=== PATIENT | male | born 1975 | race Caucasian/White ===

== ENCOUNTER 2018-05-30 06:21 | Day surgery (SDC) | payer BC ==
--- NOTE | 2018-05-28 15:01 | RAD REPORT ---
EXAM DESCRIPTION: RAD - Chest Pa And Lat (2 Views) - 05/28/2018 2:52 pm CLINICAL HISTORY: preop Chest pain. COMPARISON: No comparisons FINDINGS: The lungs are emphysematous but clear. The heart is normal in size. No displaced fractures . IMPRESSION: Mild COPD.
[2018-05-28 15:15] LABS: Absolute Lymphocytes (CBC) 3.4 K/uL (0.7-4.9); Absolute Monocytes 0.5 K/uL (0.1-1.3); Absolute Neutrophil 2.4 K/uL (1.8-8.0); Basophils % 0.7 % (0-1.3); Eosinophils % 6.5 % (0-4.4); Lymphocytes % 49.4 % (15.3-44.8); MPV 10.4 fL (7.6-11.3); Monocytes % 7.4 % (3.3-12.3); RBC Red Blood Cell Count 5.07 M/uL (4.33-5.43)
[2018-05-28 15:31] LABS: Potassium 4.2 mmol/L (3.5-5.1)
[2018-05-28 15:55] LABS: Blood Morphology Comment NOT SEEN (NOT SEEN); Platelet Estimate ADEQ
[2018-05-30] MEDS ORDERED: CEFAZOLIN/SWI 1gm 1 GM/10 ML SYR ONE (06:50)
[2018-05-30] MEDS ORDERED: LIDOCAINE 1% MPF 30 ML VIAL ONE (06:53)
[2018-05-30] MEDS: Ringers Lactate 1,000 ML IV ONE (07:00)
[2018-05-30] MEDS ORDERED: LIDOCAINE 2% MPF 5 ML VIAL ONE (07:19)
[2018-05-30] MEDS ORDERED: PROPOFOL 200 MG/20 ML VIAL IV ONE (07:19)
[2018-05-30] MEDS ORDERED: FENTANYL CITR 100 MCG/2 ML ONE (07:19)
[2018-05-30] MEDS ORDERED: MIDAZOLAM HCL 2 MG/2 ML INJ ONE (07:19)
[2018-05-30] MEDS ORDERED: ROCURONIUM 50 MG/5 ML VIAL IV ONE (07:19)
[2018-05-30] MEDS ORDERED: BUPIVACAINE 0.5% PF 10 ML VIAL ONE (07:26)
[2018-05-30] MEDS: BUPIVACAINE 0.5% PF 10 ML VIAL ONE ×2 (07:48→08:16)
[2018-05-30] MEDS ORDERED: DEXAMETHASONE 10 MG/ML VIAL ONE (08:00)
[2018-05-30] MEDS ORDERED: ONDANSETRON 4 MG/2 ML VIAL ONE (08:07)
[2018-05-30] MEDS ORDERED: GLYCOPYRROLATE 0.2 MG/ML SYR ONE (08:07)
[2018-05-30] MEDS ORDERED: DIPHENHYDRAMINE 50 MG/ML VIAL ONE (08:22)
[2018-05-30] MEDS ORDERED: EPHEDRINE SULF 50 MG/ML VIAL ONE (08:34)
--- NOTE | 2018-05-30 08:35 | P.BOP ---
Preoperative diagnosis: ulcerated tender posterior neck mass, back subQ mass Postoperative diagnosis: POtst neck basal cell carcinoma Primary procedure: 1. Wide excision with frozen section basal cell carcinoma post neck 6x4cm Secondary procedure: 2. Excisional biopsy of back subQ santoyo 4x3cm Estimated blood loss: <10cc Specimen: post neck mass, extra resected margin of neck, back mass Findings: post neck mass microscopically found to be bigger than initial physical ivette Anesthesia: General Complications: None Transferred to: Recovery Room Condition: Good
[2018-05-30] MEDS ORDERED: Ringers Lactate 1,000 ML IV ONE (08:47)
[2018-05-30] MEDS ORDERED: CODEINE 30MG/APAP 300MG TAB ONE (10:34)
--- NOTE | 2018-05-30 23:45 | DS ---
Date of Discharge: 05/30/2018 Diagnoses: Basal cell carcinoma on the posterior neck and also midback, a subcutaneous mass. Procedures: 1.Wide excision with frozen section of basal cell carcinoma, posterior neck, 6 x 4 cm. 2.Excisional biopsy of back subcutaneous mass, 4 x 3 cm. Disposition: Home. Activity: As tolerated. No heavy lifting. Follow up in my office in 1 week. Call for appointment, [phone]. Keep the area dry for 24 hours and then may shower since the patient has Dermabond over t he area. Follow up in my office this Monday. Medications: See orders. HM/MODL Voice ID: [id number] Report ID: [id number]
--- NOTE | 2018-05-31 | OP ---
Date of Procedure: 05/30/2018 Surgeon: Ritesh De La O MD Preoperative Diagnoses: Ulcerated tender posterior neck mass and also tender back subcutaneous mass, posterior neck basal cell carcinoma. Postoperative Diagnoses: Ulcerated tender posterior neck mass and also tender back subcutaneous mass , posterior neck basal cell carcinoma. Procedure: 1.Wide excision with frozen section of basal cell carcinoma, posterior neck, 6 x 3 cm. 2.Excisional biopsy of back subcutaneous mass, tender, 4 x 3 cm. Each procedure was done individual ly with different setup and instruments to avoid cross contamination. Findings: Initially we sent wide excision of that area of the neck and it came back as a basal cell carcinoma. Two of the margins were positive and so asked me to not resect everything circumferentially again including more area on the area of the positive margins now. It need to be s aid that this mass is so close to the area of the muscle that the muscle fascia cons with the specime n. Deeper than that, I did not see anything on the muscle at this moment. We went circumferentially second time even wider leaving an area of about [address] past the area of before. The patient t olerated the procedure well. I want to make sure once again that the wide excision at the beginning of procedure the area is about 6 x 4 cm. The area was irrigated. Specimen was sent to the pathologi st. Then, we have to proceed to close this in 2 layers. We used the chromic first to close its firs t layers and then the skin was approximated with a Dermabond. The second mass was done, once again d ifferent instrument, different setup, different glove at the back mass. The back mass was done using the technique which consisted a wedge incision of the skin to include the skin attached to the cyst and then, the incision was carried down to deep subcutaneous tissue. This is a different mass of the subcutaneous tissue, goes all the way down to muscle, does not penetrate the muscle. The area was i rrigated after excision of the mass and then we proceeded to close once again in layers, deep layers with 3-0 chromic, middle layers with 3-0 chromic, and the skin with Dermabond. Sponge count and inst rument counts were correct. Irrigation and hemostasis were obtained before each closure. The patien t was sent to recovery in stable condition. HM/MODL Voice ID: [id number] Report ID: [id number]
== END 2018-05-30 10:40 | disposition home or self-care (01) ==
LOC: OR 06:21
PROVIDERS: ATTEND Surgery
PROC: 0JB40ZX Excision of Right Neck Subcutaneous Tissue and Fascia, Open Approach, Diagnostic (ICD-10-PCS; principal; 2018-05-30 07:30)
PROC: 0JB70ZX Excision of Back Subcutaneous Tissue and Fascia, Open Approach, Diagnostic (ICD-10-PCS; 2018-05-30 07:30)
DX: C44.41 Basal cell carcinoma of skin of scalp and neck (principal); L72.0 Epidermal cyst
CPT/HCPCS: 36415; 71046; 80048; 85025; 88304; 88305; 88331; 88332; J0690; J1100; J2250; J2405; J2704; J3010